=== PATIENT | female | born 1960 | race Caucasian/White ===

== ENCOUNTER 2021-08-10 12:49 | Emergency (ER) | payer BC, SELFPAY ==
[2021-08-10 14:01] VITALS: BP 187/77; PULSE 68; RESP 18; TEMP 37; O2SAT 100; BMI 20.3
--- NOTE | 2021-08-10 14:23 | HMH.EDUTC ---
[facility] Disposition Clinical Impression: Infected insect bite Qualifiers: Encounter type: initial encounter Qualified Code(s): W57.XXXA - Bitten or stung by nonvenomous insect and other nonvenomous arthropods, initial encounter Disposition: Home, Self-Care Condition on Discharge: Good Instructions: Cephalexin, Mupirocin Additional Instructions: Clean area well with antibacterial soap and water Apply topical medication as prescribed Over the counter Hydrocortisone cream may help with itching in bites on legs Follow up with your Family Doctor if no improvement or any worsening of symptoms Return if needed Prescriptions: Mupirocin [Bactroban 2% Ointment 22gm tube] 1 applicatio TP TID 10 Days #22 gm Transmission Status: Received by [facility] cephALEXin [cephALEXin 500mg capsule*] 500 mg PO Q8H 7 Days #21 cap Transmission Status: Received by [facility] methylPREDNISolone [Medrol 4mg tab] 4 mg PO DIRECTED #21 tab Transmission Status: Received by [facility] Referrals: Georgina Alford [Primary Care Provider] - As needed Medical Decision Making - Gavino Inquiry Pt receiving controlled substance: No Gavino was queried for this patient: No Vital Signs: 08/10/21 14:01 Temperature 98.6 F Temperature Source Oral Pulse Rate [Left Radial] 68 Respiratory Rate 18 Blood Pressure [Right Arm] 187/77 H Blood Pressure Mean [Right Arm] 113 02 Sat by Pulse Oximetry 100 Orders (Tests/Meds): ED MEDICATIONS Discontinued Medications Generic Name Dose Route Start Last Admin Trade Name Freq PRN Reason Stop Dose Admin Methylprednisolone Sodium Succinate 125 mg 08/10/21 14:24 08/10/21 14:37 Methylprednisolone Sod Succ 125mg Vial IM 08/10/21 14:25 125 mg ONCE ONE Administration [facility] HPI - General Stated complaint: insect bite Time Seen by Provider: 08/10/21 14:23 Source of Information: Patient Description of Symptoms (Recalled from Triage Doc. by RN): patient comes in today with complains of bug bites that have spread to arms legs neck and face. the bites are swollen and red. wednesday night in her sleep is when she noticed the bits begin to happen HEENT Symptoms (Recalled from RN notes): No Resp Symptoms (Recalled from RN notes): No Skin Symptoms (Recalled from RN notes): Yes MS Symptoms (Recalled from RN notes): No Functional Status (Recalled from RN notes): wnl - History of Present Illness Provider Complaint: Patient state that they habev been camping in a cabin and she got down a blanket States that she thinks she may have been bitten several times with a spider States that today it looked like it was getting infected so she came in - Related Data Previous Rx's Medication Instructions Recorded Benzonatate [Tessalon Perle 100mg 100 mg PO TID #30 cap 03/15/19 Cap] Benzonatate [Tessalon Perle 100mg 100 mg PO TID #30 cap 03/15/19 Cap] Benzonatate [Tessalon Perle 100mg 100 mg PO TID #30 cap 03/15/19 Cap] levoFLOXacin [Levaquin 500mg 500 mg PO DAILY #7 tab 03/15/19 tab] levoFLOXacin [Levaquin 500mg 500 mg PO DAILY #7 tab 03/15/19 tab] levoFLOXacin [Levaquin 500mg 500 mg PO DAILY #7 tab 03/15/19 tab] Ondansetron [Ondansetron Odt 8mg 8 mg PO Q8H PRN 10 Days #30 tab 03/17/19 Tab] Mupirocin [Bactroban 2% Ointment 1 applicatio TP TID 10 Days #22 gm 08/10/21 22gm tube] cephALEXin [cephALEXin 500mg 500 mg PO Q8H 7 Days #21 cap 08/10/21 capsule*] methylPREDNISolone [Medrol 4mg 4 mg PO DIRECTED #21 tab 08/10/21 tab] Allergies Allergy/AdvReac Type Severity Reaction Status Date / Time No Known Allergies Allergy Verified 03/12/19 10:25 - Worker's Comp Is this a Worker's Comp case?: No [facility] History - Hepatitis A Screen Attestation statement:: This patient has been screened for Hepatitis A risk factors. I have reviewed the patient's past medical history: Yes Medical History: Denies:: Chronic Obstructive Pulm
[2021-08-10 14:49] VITALS: BP 187/77; PULSE 68; RESP 18; TEMP 37
== END 2021-08-10 14:51 | disposition home or self-care (01) ==
PROVIDERS: Emergency Provider Nurse Practitioner; PCP Nurse Practitioner Family
DX: S00.96XA Insect bite (nonvenomous) of unspecified part of head, initial encounter (principal); S40.862A Insect bite (nonvenomous) of left upper arm, initial encounter; S40.861A Insect bite (nonvenomous) of right upper arm, initial encounter; S80.862A Insect bite (nonvenomous), left lower leg, initial encounter; S80.861A Insect bite (nonvenomous), right lower leg, initial encounter; S20.96XA Insect bite (nonvenomous) of unspecified parts of thorax, initial encounter; W57.XXXA Bitten or stung by nonvenomous insect and other nonvenomous arthropods, initial encounter
CPT/HCPCS: 99212; G0463

== ENCOUNTER → 2021-12-25 10:00 | Outpatient (CLI) | payer BC, SELFPAY ==
[2021-12-25 18:38] LABS: Basophils # 0.1 K/mm3 (0-0.2); Basophils % 1.1 % (0.1-2.0); Eosinophils % 0.5 % (0.1-12.0); Hematocrit 43.3 % (37.0-47.0); Hemoglobin 14.2 g/dL (12.2-16.2); Lymphocytes # 1.4 K/mm3 (0.7-4.5); Lymphocytes % 30.4 % (10-50); Mean Corpuscular HGB Conc 32.7 g/dL (31.8-35.4); Mean Corpuscular Hemoglobin 30.5 pg (27.0-31.2); Mean Corpuscular Volume 93.1 fl (81-99); Mean Platelet Volume 9.6 fl (7.4-10.4); Monocytes # 0.3 K/mm3 (0.1-1.0); Monocytes % 5.4 % (1.7-9.3); Neutrophils # 2.9 K/mm3 (1.8-7.8); Neutrophils % 62.6 % (37.0-80.0); Platelet Count 317 K/mm3 (142-424); Red Blood Count 4.64 M/mm3 (4.20-5.40); Red Cell Distribution Width 13.5 % (11.5-17.5); White Blood Count 4.6 K/mm3 (4.8-10.8)
[2021-12-25 18:55] LABS: Alanine Aminotransferase 19 U/L (12-78); Albumin Level 4.8 g/dl (3.5-5.0); Albumin/Globulin Ratio 1.6 (1.1-1.8); Alkaline Phosphatase 70 U/L (38-126); Anion Gap 19.3 mEq/L (5-15); Aspartate Amino Transferase 58 U/L (14-36); Bilirubin,Total 1.3 mg/dl (0.2-1.3); Blood Urea Nitrogen 12 mg/dl (7-17); Calcium 9.2 mg/dl (8.4-10.2); Carbon Dioxide 22 mmol/L (22.0-30.0); Chloride 101 mmol/L (98-107); Chol/HDL Ratio 2.9 (1-3.5); Cholesterol 281 mg/dl (140-200); Estimated Glomerular Filt Rate 101 ml/min (>60); GFR (African American) 123 ML/MIN (>60); Glucose 56 mg/dl (74-100); HDL Cholesterol 98 mg/dl (40-60); Potassium 5.3 mmoL/L (3.5-5.1); Sodium 137 mmol/L (136-145); Total Protein,Serum 7.8 g/dl (6.3-8.2); Triglycerides 54 mg/dl (30-150); Uric Acid 3.6 mg/dl (2.5-6.2); VLDL Cholesterol 11 mg/dL (0-40)
[2021-12-25 19:25] LABS: Thyroid Stimulating Hormone 3.65 uIU/mL (0.465-4.68)
[2021-12-25 20:15] LABS: Direct LDL Cholesterol 140.74 mg/dL (100-129)
[2021-12-25 20:23] LABS: Free T4 (Free Thyroxine) 1.07 ng/dl (0.78-2.19)
[2021-12-25 20:58] LABS: Erythrocyte Sedimentation Rate 4 mm/hr (0-30)
[2021-12-27 08:18] LABS: RA Latex Turbid. 12.6 IU/mL (<14.0)
[2021-12-29 13:40] LABS: Anti-Centromere B Antibodies <0.2 AI (0.0-0.9); Anti-DNA (DS) Ab Qn 6 IU/mL (0-9); Anti-Jo-1 <0.2 AI (0.0-0.9); Anti-Smith Antibody <0.2 AI (0.0-0.9); Antichromatin Antibodies <0.2 AI (0.0-0.9); Antiscleroderma-70 Antibodies <0.2 AI (0.0-0.9); RNP Antibodies <0.2 AI (0.0-0.9); Sjogren's Anti-SS-A <0.2 AI (0.0-0.9); Sjogren's Anti-SS-B <0.2 AI (0.0-0.9)
[2022-01-21 11:52] LABS: Antinuclear Antibodies, IFA POSITIVE
== END ==
PROVIDERS: PCP Family Medicine; Visit Provider Family Medicine
DX: M25.541 Pain in joints of right hand (principal); M25.542 Pain in joints of left hand
CPT/HCPCS: 80053; 80061; 84439; 84443; 84550; 85025; 85651; 86038; 86225; 86235; 86431

== ENCOUNTER → 2023-01-05 17:01 | Outpatient (CLI) | payer BC, SELFPAY | LOC: LAB.DROPOF 17:01 | PROVIDERS: PCP Family Medicine; Visit Provider Nurse Practitioner Family | DX: R30.0 Dysuria (principal); B96.1 Klebsiella pneumoniae [K. pneumoniae] as the cause of diseases classified elsewhere; B96.4 Proteus (mirabilis) (morganii) as the cause of diseases classified elsewhere; B96.29 Other Escherichia coli [E. coli] as the cause of diseases classified elsewhere | CPT/HCPCS: 87086 ==

== ENCOUNTER 2023-04-19 21:34 | Outpatient (CLI) | payer BC, SELFPAY | END 2023-04-19 23:59 | LOC: LAB.DROPOF 21:34 | PROVIDERS: PCP Nurse Practitioner Family; Visit Provider Nurse Practitioner Family | DX: R30.0 Dysuria (principal) | CPT/HCPCS: 87086 ==

== ENCOUNTER 2024-04-13 09:45 | Outpatient (CLI) | payer BC, SELFPAY | END 2024-04-13 23:59 | disposition home or self-care (01) | LOC: LAB.DROPOF 04-14 11:18 | PROVIDERS: PCP Nurse Practitioner Family; Visit Provider Nurse Practitioner Family | DX: R68.89 Other general symptoms and signs (principal) | CPT/HCPCS: 87070 ==

== ENCOUNTER 2024-12-01 11:20 | Outpatient (CLI) | payer MEDICARE, SELFPAY ==
--- NOTE | 2024-12-01 11:26 | XR_ITS ---
FINAL REPORT CLINICAL HISTORY: Right knee injury -- pain on medial/post knee COMPARISON: None FINDINGS: RIGHT KNEE: There is no acute fracture or dislocation. The joint spaces are intact. There is no soft tissue abnormality. IMPRESSION: No acute fracture Reviewed, Interpreted and Dictated by Aakash Crabtree MD Transcribed by Payton Walls Authenticated and [facility]
== END 2024-12-01 23:59 | disposition home or self-care (01) ==
LOC: RAD 11:22
PROVIDERS: PCP Nurse Practitioner Family; Visit Provider Nurse Practitioner Family
DX: S89.91XA Unspecified injury of right lower leg, initial encounter (principal); X58.XXXA Exposure to other specified factors, initial encounter
CPT/HCPCS: 73562

== ENCOUNTER 2024-12-21 08:42 | Outpatient (CLI) | payer MEDICARE, OTHER, SELFPAY ==
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
== END 2024-12-21 23:59 | disposition home or self-care (01) ==
LOC: RAD 08:43
PROVIDERS: PCP Nurse Practitioner Family; Visit Provider Nurse Practitioner Family
DX: M94.261 Chondromalacia, right knee (principal); S89.91XA Unspecified injury of right lower leg, initial encounter; R93.6 Abnormal findings on diagnostic imaging of limbs
CPT/HCPCS: 73721

== ENCOUNTER 2025-01-04 09:30 | Outpatient (RCR) | payer MEDICARE, OTHER, SELFPAY ==
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
== END 2025-01-04 23:59 | disposition home or self-care (01) ==
LOC: PT.CARL 09:30
PROVIDERS: PCP Nurse Practitioner Family; Visit Provider Nurse Practitioner Family
DX: S83.206A Unspecified tear of unspecified meniscus, current injury, right knee, initial encounter (principal); V19.9XXA Pedal cyclist (driver) (passenger) injured in unspecified traffic accident, initial encounter
CPT/HCPCS: 97032; 97110; 97161

== ENCOUNTER 2025-01-31 10:00 | Outpatient (RCR) | payer MEDICARE, OTHER, SELFPAY | END 2025-01-31 23:59 | disposition home or self-care (01) | LOC: PT.CARL 10:00 | PROVIDERS: PCP Nurse Practitioner Family; Visit Provider Nurse Practitioner Family | DX: S83.206A Unspecified tear of unspecified meniscus, current injury, right knee, initial encounter (principal) | CPT/HCPCS: 97032; 97110; 97112; 97530 ==

== ENCOUNTER 2025-02-08 09:26 | Outpatient (RCR) | payer MEDICARE, OTHER, SELFPAY | END 2025-02-08 23:59 | disposition home or self-care (01) | LOC: PT.CARL 09:26 | PROVIDERS: PCP Nurse Practitioner Family; Visit Provider Nurse Practitioner Family | DX: S83.206A Unspecified tear of unspecified meniscus, current injury, right knee, initial encounter (principal) | CPT/HCPCS: 97032; 97110; 97530 ==